=== PATIENT | male | born 1950 | race Caucasian/White ===

== ENCOUNTER 2018-04-22 18:29 | Inpatient (IN) | payer MEDICARE ==
[~2018-04-22] VITALS: Ht 170.2 cm; Wt 102.2 kg
[~2018-04-22 18:29] MED LIST: AUGMENTIN 875-1 EACH PO; K-TAB ER20 MEQ PO; LASIX20 MG PO; NORCO 5-325 TA1 EACH PO
--- NOTE | 2018-04-22 22:05 | NUR ---
PATIENT ARRIVED TO THE UNIT VIA STRETCHER. WAS ABLE TO MOVE HIMSELF OVER TO THE BED. VS DONE, WNL. IV FLUIDS STARTED PER ORDER, IV SITE IN LEFT ARE IS PAINFUL BUT FLUSHES EASILY AND RETURNS BLOOD. PATIENT REQUESTING NEW IV SITE. PAIN IN RIGHT LEG IS 4/10, PRN NORCO PROVIDED.
--- NOTE | 2018-04-22 23:00 | NUR ---
PATIENT ASSESSMENT COMPLETE. PATIENT IS AAOX4. PAIN CONSTANT IN RIGHT LOWER LEG, COMES AND GOES WITH INTENSITY THOGUH. 2-5/10 OF BURNING, THIGHT, THROBBING PAIN. PATIENT APPEARS SOB AND REPORTS FEELING SO WHILE SITTING UP TRYING TO EAT A SNACK. REPORTS CARBONMONOXIDE POISONING TWO MONTHS AGO WITH REGULAR EPISODES OF SOB SINCE. RT CONTACTED. LUNGS ARE CLEAR IN UPPER LOBES WITH FINE CRACKLES IN THE BASES, MORE DEFINED IN THE RLL. ABD IS FIRM, NONTENDER, BOWEL SOUNDS ACTIVE. NO NAUSEA. ABCESS WAS DRAINED ON R LOWER EXTREMITIY IN ED AND ENTIRE AREA WAS WRAPPED WITH GAUZE. CMS INTACT, WITH SOME NUMBNESS IN THE RIGHT FOOT. NEW IV SITE PLACED IN LEFT FOREARM, IV FLUIDS INFUSING. RIGHT AC SITE REMOVED PER PATIENT REQUEST DUE TO PAIN. PATIENT HAD SOME VALUBLES FOR THE SAFE WHICH WERE WITNESSED BY THIS RN AND THE EXECUTIVE CONSULTANT ZORA SINGH. PATIENT RESTING COMFORTABLY IN BED. URNAL PROVIDED PER REQUEST. PATIENT AGREEABLE TO NOT GETTING OUT OF BED WITHOUT CALLING FOR ASSIST. CALL LIGHT IN REACH.
--- NOTE | 2018-04-23 01:23 | NUR ---
VITALS AND I&OS DONE AND CHARTED. LET HIS RN NOELLE KNOW OF LOW B\P, AND NO OUTPUT AT THIS TIME. WHEN ASKED IF HE NEEDED TO URINATE? HE SAYS NO NOT NOW. FRESH ICE WATER GIVEN. BEDSIDE TABLE AND CALL LIGHT WITHIN REACH. PT NEEDS NOTHING AT THIS TIME.
--- NOTE | 2018-04-23 02:30 | NUR ---
PATIENT RESTING IN BED. IV FLUIDS INFUSING PER ORDER. IV FLUIDS INFUSING PER ORDER, SITE WNL. VS WNL PER CAN. PATIENT REPORTS TOLERABLE PAIN LEVEL WHILE SLEEPING. DENIES ANY NEEDS. WOUND DRESSING IS CDI. CALL LIGHT IN REACH.
--- NOTE | 2018-04-23 04:45 | NUR ---
PATIENT APPEARS TO BE SLEEPING. RR 18. CALL LIGHT IN REACH.
--- NOTE | 2018-04-23 06:07 | NUR ---
PATIENT SLEPT ON AND OFF THROUGHOUT THE NIGHT. WOUND ON RIGHT LOWER EXTREMITIEY IS COVERED, MODERATE AMOUNT OF YELLOW DRAINAGE. PAINFUL CONSTANTLY, MORE WITH MOVEMENT OR PRESSURE. REQUIRES FWW TO REDUCE WEIGHT TO RIGHT FOOT WITH AMBULATING. PATIENT IS UPPER BODY STRONG. PRN NORCO X2. NO NAUSEA. VS WNL. IV FLUIDS & IV VANCO PER ORDER.
--- NOTE | 2018-04-23 06:25 | NUR ---
PATIENT UP TO THE BATHROOM. DIFFICULTY PUTTING WEIGHT ON RIGHT FOOT. WALKER PROVIDED STABILITY TO REDUCE WEIGHT AND ALLOW PATIENT TO WALK WITH SBA. PATIENT WAS UNABLE TO VOID WHILE STANDING AND DID NOT AGREE TO SIT DOWN ON THE TOILET. PATIENT MOVED TO THE RECLINER. RIGHT LEG ELEVATED. PRN NORCO PROVIDED. IV VANCO ADMINISTERED PER ORDERS. PATIENT EDUCATION PROVIDED. CALL LIGHT IN REACH. NO OTHER NEEDS AT THIS TIME.
--- NOTE | 2018-04-23 06:40 | NUR ---
VITALS DONE AND CHARTED. GARBAGES EMPTIED, ROOM CLEANED UP. FRESH ICE WATER GIVEN. BEDSIDE TABLE AND CALL LIGHT WITHIN REACH. PT IN CHAIR WHEN I LEFT.
--- NOTE | 2018-04-23 07:30 | NUR ---
REPORT RECIEVED FROM SAMANTHA DRAKE. PT SITTING UP IN CHAIR WITH LEG PROPPED ON PILLOWS. DRAINAGE NOTED ON DRESSING.
--- NOTE | 2018-04-23 08:27 | NUR ---
PT RETURNED FROM XRAY AND IS NOW SITTING UP IN CHAIR EATING BREAKFAST.
--- NOTE | 2018-04-23 10:17 | NUR ---
BLADDER SCANNED PT DUE TO LOW URINE OUTPUT. 459 NOTED IN BLADDER. ASKED IF PT WOULD BE OPPOSED TO CATHETER AND HE STATED NO HE DOES NOT FEEL HE CAN STAND TO URINATE RIGHT NOW. INFORMED DR MAYORGA.
--- NOTE | 2018-04-23 14:10 | NUR ---
PT SITTING UP IN BED-ALERT AND ORIENTED. HE DMADE A STATEMENT WHEN I INTRO. MY SELF THAT HE FELT "GOD HAS ABANDON ME". WE DEBRIEFED REGARDING THIS, AND ALSO DISCUSSED HIS MED. CONDITION AND HIS UNDERSTANDING. PT REQUESTED PRAYER, WILL CONTINUE TO FOLLOW
--- NOTE | 2018-04-23 14:26 | NUR ---
ASKED A NURSE TO GET HIM A ICE WATER.
--- NOTE | 2018-04-23 14:36 | NUR ---
ALSO THE NURSE BROUGHT ME A POP SICLE FOR THE PATIENT.
--- NOTE | 2018-04-23 15:30 | NUR ---
RECEIVED REPORT AT 1530 FROM RUTH ANN Goddard FOUND PT IN BED WATCHING TV. DRESSING ON RIGHT LOWER LEG WAS RE-INFORCED WITH AN ABD PAD DUE TO DRAINAGE. RIGHT PEDIS PULSE WAS +2, EDMEA IS ABOUT +3 NON PITTING. LEG IS HOT TO TOUCH. CAP-REFILL IS <3 SEC. WILL CONTINUE TO MONITOR.
--- NOTE | 2018-04-23 17:25 | NUR ---
I HAVE TAKEN CARE OF THIS PT SINCE ABOUT 1529. SINCE THAT TIME HIS RIGHT LEG EDEMA WAS OF CONCERN. SO FAR RIGHT PEDIS PULSE IS +2, EDEMA IS +3 NON-PITTING, LEG IS HOT TO TOUCH. THERE ARE NO NEW CONCERNS AT THIS TIME. WILL CONTINUE TO MONITOR.
--- NOTE | 2018-04-23 17:27 | NUR ---
TOOK OVER CARE FOR THIS PT AT ABOUT 1530. SINCE THEN PT HAD NO NEW CONCERNS. ORTHO V/S TO BE DONE. ALL LOBES ARE CLEAR, PT IS FORGETFUL AT TIMES. PT IS OVERALL WEAK AND BOWEL TONES ARE HYPERACTIVE. WILL CONTINUE TO MONITOR.
--- NOTE | 2018-04-23 20:00 | NUR ---
PATIENT RESTING IN BED WATCHING TV AND IN NO DISTRESS. CALL LIGHT IS IN REACH.
--- NOTE | 2018-04-23 21:30 | NUR ---
VITAL SIGNS DONE, WNL. KINGSTON EMPTIED. IV PUMP TOTALS CLEARED. PATIENT WAS SLEEPING WHEN RN ENTERED THE ROOM. WAS SLIGHTLY CONFUSED ON THE TIME BUT BECAME ORIENTED AFTER A COUPLE MINS. HE DENIES PAIN AT THIS TIME. CALL LIGHT IN REACH.
--- NOTE | 2018-04-24 02:04 | NUR ---
PATIENT RESTING QUIETLY. CALL LIGHT IS IN REACH. PATIENT'S RESPIRATIONS EVEN AND REGULAR EYES CLOSED. RT LEG ELEVATED ON A PILLOW AND DRESSING IS CDI.
--- NOTE | 2018-04-24 04:20 | NUR ---
PATIENT GIVEN 1 NORCO FOR 6/10 LEG PAIN. PATIENT HAS BEEN SLEEPING WELL UNTIL THIS TIME. WILL RETURN TO REASSESS PAIN. CALL LIGHT IN REACH.
--- NOTE | 2018-04-24 07:52 | NUR ---
PATIENT SLEPT MOST OF THE SHIFT WITH JUST NEURONTIN AND TORADOL FOR PAIN BEFORE BEDTIME. AFTER 0 PATIENT WAS HAVING 6/10 RT LEG PAIN. I PO NORCO GIVEN AND PAIN DOWN TO 4/10 NOW. LUNGS ARE CLEAR AND BOWEL TONES ACTIVE. RIGHT LEG REMAINS ELEVAATED ON PILLOWS AND HAS SOME YELLOWISH DRAINAGE ON THE GAUZE AROUND THE KNEE WHICH DAY SHIFT WILL DISCUSS CHANGING WITH THE MD TODAY. PATIENT'S CALL LIGHT IS IN REACH.
--- NOTE | 2018-04-24 08:00 | NUR ---
RECEIVED REPORT AT 0700, FOUND PT IN BED SLEEPING. WILL TALK TO MD MAYORGA ABOUT A DRESSING CHANGE TODAY.
--- NOTE | 2018-04-24 10:15 | NUR ---
SBP WAS 100. PT IS ASYMPTOMATIC. WILL CONTINUE TO MONITOR. ALL LOBES ARE CLEAR. ABD SOUNDS ARE PRESENT. RIGHT LEG PEDIS PULSE IS +2, EJ IS +2. A DRESSING CHANGE WAS DONE AND MUCH SEROUS FLUID WITH MUCH PUSS WAS MILKED OUT OF THIS WOUND. MD MAYORGA CAME AND EVALUATED. AT THIS TIME A Q SHIFT OR PRN DRESSING CHANGE NEEDS TO BE DONE PER ORDER. WILL CONTINUE TO MONITOR FOR INCREASED EDEMA AND PEDIS PULSE. NO NEW CONCERNS AT THIS TIME.
--- NOTE | 2018-04-24 12:00 | NUR ---
PT IS EATING LUNCH AT THIS TIME. NO NEW CONCERNS AT THIS TIME.
--- NOTE | 2018-04-24 12:51 | NUR ---
I HELPED PATIENT WITH HIS BED BATH THIS MORING. HE IS SITTING UP IN HIS CHAIR WITH HIS LEGS UP.
--- NOTE | 2018-04-24 13:40 | NUR ---
PT WAS RESTING IN CHAIR, MENTIONED THAT HE HAD BEEN GIVEN SOMETHNG FOR PAIN AND WAS DROWSY. I TOLD HIM TO GO AHEAD AND REST, EXTENDED A BLESSING, HE THANKED ME FOR CHECKING. WILL FOLLOW NEEDED
--- NOTE | 2018-04-24 14:04 | NUR ---
PT IS SITTING IN CHAIR. PT NEEDED SOME IV DILAUDED 1MG FOR PAIN 5/10. PT WANTS TO TAKE A NAP. NO NEW CONCERNS AT THIS TIME.
--- NOTE | 2018-04-24 14:24 | NUR ---
SPOKE WITH PATIENT IN ROOM. PATIENT UNDERSTANDS WHY HE IS IN ISOLATION. STATES HE WANTS A NEW PCP IN [facility], [place]. STATES HE HAS BEEN SEEING A PCP IN [place] BUT HAS LOST CONFIDENCE IN THEM. DISCUSSED THAT IT TAKES A FEW MONTHS TO BE ESTABLISHED WITH NEW PCP, HE MAY NEED TO CONTINUE WITH ONE HE HAS FOR NOW. HE STATES HE WILL THINK ABOUT IT. 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 STATES HE HAS MEDICAL RIDES IF NEEDS TO GET TO APPOINTMENTS, AND DRIVES TOO. HAS NO FAMILY IN AREA. PATIENTS PREFERENCE IS TO RETURN HOME AT DISCHARGE. HAS A FRIEND WHO CAN TAKE HIM HOME. DISCUSSED HE MAY NEED ASSISTED ABX THERAPY, THAT CULTURES ARE STILL PENDING AND WE WILL CONTINUE TO FOLLOW HIM. DISCUSSED DX AND QUESTIONS ANSWERED. HE IS WONDERING ABOUT SOME HELP AT HOME IF HE IS "LAYED UP LONG". DISCUSSED WE CAN LOOK AT OPTIONS BY DISCHARGE, CHW PROGRAM, SWG PROGRAM AND OUTPATIENT TREATMENTS. NO FURTHER QUESTIONS AT THIS TIME.
--- NOTE | 2018-04-24 16:00 | NUR ---
PT IS SITTING UP IN CHAIR WATCHING TV.
--- NOTE | 2018-04-24 18:11 | NUR ---
DRESSING CHANGE WAS DONE AT ABOUT 1000. NEW ORDER FOR DRESSING CHANGE DONE. PAIN CONTROL SINCE DRESSING CHANGE HAS BEEN AN ISSUE THAT IS STILL ONGOING. EJ I RIGHT LOWER LEG AND KNEE IS +3 SINCE DRESSING CHANGE, PEDIS PULSE IS +2. RIGHT LEG IS ELEVATED. NO NEW CONCERNS AT THIS TIME. VANC TROUGH 04/24/18 WAS 10.6.
--- NOTE | 2018-04-24 18:30 | NUR ---
HELPED HIM BACK TO BED GOT HIM A NEW GLASS OF ICE WATER THAN PUT LOTION ON HIS BACK.
--- NOTE | 2018-04-24 19:30 | NUR ---
RECEIVED RERPORT FROM DAYSHIFT RN AND PATIENT'S PAIN IS CURRENTLY 4/10 IN THE RIGHT LEG WHICH IS COMFORTABLE FOR HIM AT THIS TIME. RT LEG ELEVATED ON 2 PILLOWS AND PATIENT'S CALL LIGHT IN REACH.
--- NOTE | 2018-04-24 21:10 | NUR ---
PATIENT IS SITTING IN BED WATCHING TV. RT LEG IS ELEVATED ON 2 PILLOWS. PATIENT'S PAIN 5/10 AT THIS TIME. PATIENT'S WATER GLASS IS FULL AND PATIENT NOT IN NEED OF ANYTHING AT THIS TIME. CALL LIGHT IS IN REACH.
--- NOTE | 2018-04-24 23:25 | NUR ---
VITALS AND I&OS DONE AND CHARTED. BEDSIDE TABLE AND CALL LIGHT IN REACH. NOTIFIED RN OF HIGH TEMP. 100.5
--- NOTE | 2018-04-25 02:00 | NUR ---
PATIENT RESTING QUIETLY, EYES CLOSED, RESPIRATIONS EVEN AND REGULAR. CALL LIGHT IN REACH.
--- NOTE | 2018-04-25 03:15 | NUR ---
PATIENT'S LUNGS REMAIN CLEAR AND BOWEL TONES ACTIVE. IV INFUSING AND WNL. RT LEG WOUND HAS BEEN REPACKED AND REDRESSED. 1/4INCH PACKING USED TO PACK THE WOUND AFTER IRRIGATED WITH 50MLS SALINE. THEN COVERED WITH 4X4'S,ABD,KERLIX AND KUSHAL WRAP. PATIENT WAS PREMEDICATED WITH 4MG ZOFRAN, 1 PO NORCO, AND 1MG DILAUDID. PAIN GOT UP TO 8/10 WHEN PACKING WOUND, BUT BACK TO 4/10 AT THIS TIME AND PATIENT IS COMFORTABLE WITH THAT. GOWN CHANGED FROM PATIENT SWEATING, ALONG WITH SOME LINENS. RT LEG ELEVATED ON 2 PILLOWS. CALL LIGHT IN REACH.
--- NOTE | 2018-04-25 07:30 | NUR ---
HANDOFF REPORT RECEIVED FROM QUALITY OFFICER RN.
--- NOTE | 2018-04-25 08:35 | NUR ---
PT RESTINING IN BED, MD AT BEDSIDE. PT ON ROOMA IR, LUNG SOUNDS CLEAR, DENIES SOB. PT TOLERATING REGULAR DIET, DENIES NAUSEA, BOWEL TONES ACTIVE. IV FLUIDS INFUSING NS AT 75 ML/HR, IV VANCO INFUSING. PT WIHT KING[place] CTAH IN PLACE, DRAINING YELLOW URINE FREELY. PT WITH DRESSING TO RLE, CDI, DISCUSSED DRESSING CHANGE AFTER SHOWER. CM SINTACT, EDEMA TO RLE 2-3+, LEG ELEVATED. PT DENIES OTHER NEEDS AT THIS TIME.
--- NOTE | 2018-04-25 10:23 | NUR ---
PATIENT WANTED TO TAKE A SHOWER LATER. ALSO CHANGED HIS BED LINENS.
--- NOTE | 2018-04-25 11:00 | NUR ---
PT RESTING IN CHAIR,PT COMPLAINT OF PAIN TO RIGHT LEG, ELEVATED WITH ADDITIONAL PILLOW. PT DENIES OTHER NEEDS AT THIS TIME.
--- NOTE | 2018-04-25 11:45 | NUR ---
NURSE AIDE AT BEDSIDE TO ASSIST WITH SHOWER.
--- NOTE | 2018-04-25 12:00 | NUR ---
WRAPPED PATIENT'S LEG BEFORE GETTING IN THE SHOWER. ALSO HELPED HIM WITH HIS SHOWER. WASHED HIS HAIR. NOW IS LAYING IN BED VISITING WITH HIS COMPANY.
--- NOTE | 2018-04-25 12:00 | NUR ---
DRESSING CHANGE COMPLETED. WOUND WASHED WITH WOUND CLEANSER, RINSED WITH SALINE, PACKED WITH 1/4 INCH PACKING STRICK, COVERED WITH GAUZE, ABD, SECURED WITH KERLEX AND KUSHAL. PT PREMEDICATED WITH 1 MG IV DILAUDID AND 4MG ZOFRAN. PT TOLERATED PROCEDURE WITH MODERATE PAIN. MD TO BEDSIDE TO ASSESS WOUND BEFORE APPLICATION OF NEW DRESSING.
--- NOTE | 2018-04-25 14:30 | NUR ---
PT RESTING IN BED. PT REQUESTING PAIN MEDICATION FOR PAIN / TO RIGHT LEG, GIVEN 1 TAB NORCO. CMS INTACT, CONTINUES TO HAVE RLE EDEMA 2-3+. IV CLINDAMYCIN INFUSING. NO ACUTE CHANGES. PT DENIES OTHER NEEDS AT THIS TIME.
--- NOTE | 2018-04-25 15:36 | NUR ---
PATIENT HAS VISITORS IN HIS ROOM.
--- NOTE | 2018-04-25 18:37 | NUR ---
PT GIVEN 1 TAB NORCO FOR PAIN 6/ TO RIGHT LEG. PT ASSISTED TO BED. LEG ELEVATED. PT DENIES OTHER NEEDS AT THIS TIME.
--- NOTE | 2018-04-25 18:38 | NUR ---
PT ON ROOM AIR, LUNG SOUNDS CLEAR. DRESSING CHANGE COMPLETED TO RIGHT LEG WOUND. PAIN CONTROLLED WITH NORCO, PRN DILAUDID GIVEN BEFORE DRESSING CHANGE. PT TOLERATING REGULAR DIET, BOWEL TONES ACTIVE, BM TODAY, MIRALAX AND SENNA STARTED FOR CONSTIPATION. PT UP WITH 1PA WITH FWW, CONTINUES TO BE UNABLE TO BEAR WEIGHT TO RIGHT LEG. PT WITH THEE, QS. SALINE LOCKED, IV CLINDAMYCIN.
--- NOTE | 2018-04-25 18:51 | NUR ---
PT WITH COMPLAINT OF RIGHT KNEE PAIN BEHIND KNEE. DISCUSSED WITH MD SUJATA TO ORDER, DVT RO U/S. U/S TECH NOTIFIED.
--- NOTE | 2018-04-25 20:00 | NUR ---
PATIENT LAYING IN BED WITH RT LEG ELEVATED UP ON TWO PILLOWS. PATIENT WOUND IS UNDRESSED. PATIENT WATCHING TV AT THIS POINT AND PAIN UNDERCONTROL AT THIS TIME. WILL BE BACK TO REDRESS WOUNDS. CALL LIGHT IN REACH.
--- NOTE | 2018-04-25 22:09 | NUR ---
PATIENT GIVEN ALL PM MEDS AND PREMEDICATED WITH 1MG DILAUDID AND 1 NORCO WITH 4MG ZOFRAN BEFORE DRESSING CHANGE AND PAIN WAS 2/10. OLD PURULANT 1/4 INCH PACKING REMOVED . WOUND IRIGATED WITH 100MLS NS WITH VERY LITTLE DISCHARGE. WOUND REPACKED WITH 1/4INCH PACKING AND COVERED WITH 4X4'S, ABD, KERLIX, AND AN KUSHAL WRAP. PATIENT 'S PAIN RETURNED TO 8/10 AND REDOSED WITH ANOTHER 1MG DILAUDID AND PAIN BACK TO 2/10. PATIENT GOING TO TRY AND GO TO SLEEP AND CALL LIGHT IN REACH, WARM BLANKET GIVEN, AND LIGHT TURNED DOWN.
--- NOTE | 2018-04-26 00:50 | NUR ---
SAMANTHA VERMA DID THE V/S AND I&O.
--- NOTE | 2018-04-26 01:01 | NUR ---
PATIENT RESTING QUIETLY SNORING WITH A RESPIRATORY RATE OF 16BPM. EYES CLOSED, RESPIRATORY RATE REGULAR AND EVEN. CALL LIGHT IN REACH.
--- NOTE | 2018-04-26 03:00 | NUR ---
PATIENT RESTING QUIETLY SUPINE, SNORING SLIGHTLY, RESPIRATIONS EVEN AND REGULAR AT 16BPM. EYES CLOSED, NO S/S OF DISTRESS, AND CALL LIGHT IS IN REACH.
--- NOTE | 2018-04-26 04:43 | NUR ---
PATIENT'S PAIN REMAINS UNDER CONTROL AT THIS TIME AND HE STILL HAS HIS RT LEG PROPPED UP ON 2 PILLOWS. ASSESSMENT REMAINS UNCHANGED. PATIENT IS STILL SLEEPY AND IS GOING BACK TO SLEEP. CALL LIGHT IN REACH.
--- NOTE | 2018-04-26 05:46 | NUR ---
PATIENT CURRENTLY AWAKE, BUT DROWSY. PATIENT SAYS HE HAS SLEPT PRETTY WELL SINCE THE DRESSING CHANGE. RT LEG REMAINS ELEVATED ON 2 PILLOWS AND SWELLING LOOKS SOMEWHAT BETTER AND NO QUITE RED. THE COMBINATION OF PREMEDICATING WITH 1MG DILAUDID, 1 NORCO, AND 4MG IV ZOFRAN PRIOR TO DRESSING CHANGE AND THEN 1MG IV DILAUDID AFTER DRESSING CHANGE SEEMS TO WORK VERY WELL FOR PATIENT'S PAIN CONTROL. PATIENT GOING TO TRY AND GET SOME MORE REST AT THIS TIME AND CALL LIGHT IS IN REACH.
--- NOTE | 2018-04-26 08:00 | NUR ---
PT AWAKE IN BED, ALERT AND ORIENTED. ASSISTED TO EDGE OF BED TO EAT BREAKFAST. PT MEDICATED WITH NORCO FOR 5/10 RIGHT LEG PAIN. DENIES NAUSEA OR OTHER CONCERNS. RIGHT LEG DRESSING CDI. BLINDS OPENED. IV FLUSHED AND ABX INFUSED. CALL LIGHT WITHIN REACH.
--- NOTE | 2018-04-26 09:15 | NUR ---
PT 1PA WITH WALKER TO TRANSFER TO RECLINER. PT DID NOT BARE WEIGHT ON RIGHT LEG BUT WAS ABLE TO "HOP" WITH LEFT USING WALKER. RIGHT LEG ELEVATED ON 2 PILLOWS, PT REPORTS DECREASE IN PAIN AT REST. CALL LIGHT WITHIN REACH.
--- NOTE | 2018-04-26 10:12 | NUR ---
WHEN I CAME IN PATIENT WAS UP IN HIS CHAIR WORKING WITH PHYSICAL THERAPY. CHANGED BED LINENS.
--- NOTE | 2018-04-26 12:15 | NUR ---
PT SLEEPING IN RECLINER, EYES CLOSED, RESP EVEN AND UNLABORED.
--- NOTE | 2018-04-26 12:44 | NUR ---
PATIENT IS SLEEPING.
--- NOTE | 2018-04-26 13:17 | NUR ---
PT REPORTING RIGHT LEG PAIN 03/01, MEDICATED WITH PRN NORCO. IV ABX STARTED. PT SITTING UP IN RECLINER RESTING, WARM BLANKETS GIVEN. PT STATES HE IS NOT HUNGRY AT THIS TIME AND WILL EAT LATER. CALL LIGHT WITHIN REACH.
--- NOTE | 2018-04-26 15:00 | NUR ---
RIGHT LEG DRESSING. NO PUSS EXTRACTED, ONLY SEROSANGUINOUS FLUID. IRRIGATED WITH STERILE SALINE, PACKED AND REDRESSED WITH GAUZE, ABD, KERLEX, AND KUSHAL WRAP. PT HAD MODERATE PAIN BUT TOLERATED WELL. MEDICATED AFTERWARDS WITH 1MG IV DILAUDID. PT NOW EATING LUNCH. CALL LIGHT WITHIN REACH.
--- NOTE | 2018-04-26 16:50 | NUR ---
PT RESTING IN RECLINER, EYES CLOSED, RESP EVEN AND UNLABORED.
--- NOTE | 2018-04-26 17:56 | NUR ---
PT RATING RIGHT LEG PAIN 7/10. MEDICATED WITH SCHEDULED NAPROXEN. REDRESSED GAUZE, ABD, KERLEX, AND GAUZE DRLashaun REMOVED OUTER DRESSING TO OBSERVE WOUND. CALL LIGHT WITHIN REACH.
--- NOTE | 2018-04-26 20:00 | NUR ---
ROUNDED CHARGE. PATIENT IS RESTING IN BED. PATIENT DENIES ANY COMMENTS, QUESTIONS, OR CONCERNS. NO NEEDS NEEDED. CALL LIGHT IN REACH.
--- NOTE | 2018-04-26 23:15 | NUR ---
ASSISTED SAMANTHA VERMA GETTING READY/ SET UP PATIENT FOR SHOWER.
--- NOTE | 2018-04-26 23:16 | NUR ---
CLEANED UP BATHROOM AFTER PATIENT'S SHOWER.
--- NOTE | 2018-04-27 00:31 | NUR ---
Resting, legs elevated, r leg dressing intact, showered earlier. no resp distress at this scotty. no s/sx pain. NWB r leg. f/c patent. fludis and all light at hands reach
--- NOTE | 2018-04-27 03:36 | NUR ---
MEDICATED WITH ONE NORCO AND ONE TYLENOL 325MG PO PRIOR TO LEG DRESSING CHANGES. R LEG DRESSING CHANGED, NO DRAINAGE NOTED WHEN LEG SQUEEZED. TUNNELING OF WOUND ABOUT 1 1/2 INCH. PACKED WITH 1/2CM PACKING TAPE. WOUND ENTRANCE COVERED WITH GAUZE AND REWRAPPED WITH GAUZE AND KUSHAL WRAP. SKIN BEHIND KNEE AND AROUND UPPER CALF RED, TENDER, WARM AND FIRM TO TOUCH. DRY SKIN BELOW. LEG ELEVATED WITH 2 PILLOW. COOPERATIVE WITH PROCEDURE
--- NOTE | 2018-04-27 05:07 | NUR ---
PT R LEG ELEVATED WITH PILLOWS CLEAN DRESSING R MID LOWER LEG. SKIN RED, EDEMATOUS AND VERY LITTLE SS DISCHARGE. DRESSING CHANGES SCHEDULE BID. WAS MEDICATED WITH NORCO AND 1 TYLENOL 325MG PO PRIOR TO DRESSING CHANGE WITH GOOD PAIN RELIEF. C/O L KNEE PAIN TOO. SL INTACT, F/C PATENT, DRAINING CLEAR YELLOW URINE. PT IS NWB R LEG, USES 1PA AND FWW TO TRANSFER, FLUIDS AND CALL LIGHT WITHIN HANDS REACH
--- NOTE | 2018-04-27 06:02 | NUR ---
AWAKE, WATCHING TV, NO C/O APIN, NO REQUESTS, ON ROOM AIR, R LEG DRESSING CDI, ELEVATED WITH PILLOWS, HIGINIO COLORED SKIN. EDEMATOUS, GOOD CMS.
--- NOTE | 2018-04-27 08:11 | NUR ---
PT SITTING UP AT EDGE OF BED EATING BREAKFAST. REPORTS THIS AM THAT HIS RIGHT LEG WHERE WOUND IS "HAS ALMOST NO PAIN THIS MORNING." HIS COMPLAINTS TODAY ARE OF PAIN AND SWELLING OF HIS LEFT KNEE, 5/10. PT MEDICATED WITH SCHEDULED NAPROXEN. RIGHT LEG DRESSING CDI, 3+ PITTING EDEMA, LEG APPEARS SLIGHTLY LESS REDDENED TODAY. IV FLUSHED AND ABX STARTED. CALL LIGHT WITHIN REACH.
--- NOTE | 2018-04-27 08:47 | NUR ---
pateint is using restroom, awaiting guests, he needed no other assistance at this time.
--- NOTE | 2018-04-27 10:40 | NUR ---
PT SITTING UP IN RECLINER WATCHING TV. DENIES NEEDS OR CONCERNS AT THIS TIME. CALL LIGHT WITHIN REACH.
--- NOTE | 2018-04-27 12:01 | NUR ---
PT MEDICATED WITH PRN NORCO FOR C/O LEFT KNEE PAIN 05/01. SITTING UP IN RECLINER EATING LUNCH, TALKING ON HIS CELLPHONE.
--- NOTE | 2018-04-27 13:40 | NUR ---
PT MEDICATED WITH TYLENOL FOR C/O LEFT KNEE PAIN 05/01. PLACED ICE PACK TO LEFT KNEE. NOTIFIED DR. LOPEZ OF PAIN.
--- NOTE | 2018-04-27 15:26 | NUR ---
CARE CONFERENCE PATIENT, MYSELF, DR LOPEZ DISCUSSED PATIENTS DIAGNOSIS, TESTS, DISCHARGE PLAN PATIENT STATES HE IS HAVING PAIN IN LEFT KNEE TODAY. DR LOPEZ DID AN ASSESSMENT. PATIENT STATED HE DID GET UP THIS MORNING EASILY. HE STATES HE HAS A GIRLFRIEND FROM [facility] WHO IS PLANNING ON COMING AND STAYING WITH HIM WHEN HE GETS HOME. DISCUSSED THAT PHYSICAL THERAPY STATES HE NEEDS REHAB STAY. HE STATES HE IS FINE WITH THIS BUT WANTS TO SEE IF HE CAN DO IT AT [facility]. AGREED THAT I WILL CALL AND CHECK ON AVAILABILITY. QUESTIONS ANSWERED BY DR LOPEZ. XRAY BEING ORDERED FOR L KNEE.
--- NOTE | 2018-04-27 15:37 | NUR ---
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
--- NOTE | 2018-04-27 17:01 | NUR ---
PREMEDICATED WITH NORCO FOR DRESSING CHANGE. PT REPORTS THAT OVERALL PAIN IS DOWN TO 3/10, STATES THAT ICE TO LEFT KNEE HELPED A LOT WITH PAIN.
--- NOTE | 2018-04-27 17:48 | NUR ---
DRESSING CHANGE COMPLETED. NO EXUDATE EXPRESSED. IRRIGATED WITH STERILE SALINE. PACKED WITH 1/2 PACKING. REDNESS AND INLFAMMATION HAVE DRASTICALLY DECREASED SINCE YESTERDAY. DRESSED WITH 4X4 GAUZE, ABD, KERLEX, AND KUSHAL WRAP. PT MEDICATED WITH SCHEDULED NAPROXEN. SITTING UP IN BED EATING DINNER AFTER DRESSING CHANGE. CALL LIGHT WITHIN REACH.
--- NOTE | 2018-04-27 19:15 | NUR ---
RECEIVED REPORT FROM DAY SHIFT RN. PATIENT IS RESTING IN BED WATCHING TV. PATIENT DENIES ANY NEEDS AT THIS TIME. CALL LIGHT IN REACH. NO NEEDS NOTED.
--- NOTE | 2018-04-27 21:50 | NUR ---
PATIENT ASSESMENT COMPLETED. PATIENT RATES PAIN IN HIS LEFT KNEE AT A 5/10. PRN PAIN MEDICATION GIVEN PER ORDER. PATIENTS EVENING MEDICATIONS GIVNE PER ORDER. NEW IV STARTED AND OLD ONE REMOVED THE OLD ONE WAS LEKAING. PATIENT TOLERATED ACTIVITY WELL. PATIENTS K[place]ST[place] EMPTIED. K[place]STON CARE COMPLETED. PATIENT DENIES ANY FURTHER NEEDS. TEETH BRUSHED. CALL LIGHT IN REACH. DRESSING ON RIGHT LEG IS C/D/I, NO DRAINAGE NOTED.
--- NOTE | 2018-04-27 23:58 | NUR ---
PATIENT IS RESTING IN BED WITH EYES CLOSED, RR 17. CALL LIGHT WITHIN REACH.
--- NOTE | 2018-04-28 02:40 | NUR ---
PATIENT ASSESMENT COMPLETED. PATIENTS 0200 ABX GIVEN PER ORDER. PATIENT RATES PAIN AT A 4/10. PATIENT DENIES THE NEED FOR PAIN MEDICATION. PATIENT DENIES ANY FURTHER NEEDS CALL LIGHT IN REACH.
--- NOTE | 2018-04-28 04:23 | NUR ---
PATIENT IS RESTING IN BED WITH HIS EYES CLOSED ON HIS RIGHT SIDE. RR 17. CALL LIGHT IN REACH.
--- NOTE | 2018-04-28 05:07 | NUR ---
PATIENT RESTED WELL THROUGHOUT THE SHIFT. PATIENT IS ON A REGULAR DIET. PATIENT IS WORKING WITH PT. PATIENT HAS A KINGSTON IN PLACE AND OUPUT IS QS. PATIENT IS A 1PA W/FWW AND RIGHT LEG WEIGHT BEARING TOLERATED. ICE PACK APPLIED TO LEFT KNEE NEEDED FOR COMFORT. PATIENT HAS DRESSING CHANGES QSHIFT ON RIGHT LOWER LEG. PATIENTS BOWEL MEDICATIONS W/HELD PATIENT HAD MULTIPLE LOOSE STOOLS. PATIENT RECEIVED PRN PAIN MEDICATION X2. PATIENT IS AAOX3.
--- NOTE | 2018-04-28 07:06 | NUR ---
PATIENTS DRESSING CHANGED COMPLETED. PATIENT GIVEN PRN PAIN MEDICATION PER ORDER. PATIENT IS IN BED RESTING. PATIENT DENIES ANY FURTHER NEEDS. CALL LIGHT IN REACH.
--- NOTE | 2018-04-28 07:30 | NUR ---
BEDSIDE HANDOFF REPORT RECEIVED FROM DOUBLE END SEWER RN. PT RESTING IN BED. PT DENIES NEEDS AT THIS TIME.
--- NOTE | 2018-04-28 09:15 | NUR ---
PT RESTING IN BED. PT RATING PAIN 4/10 TO RIGHT LEG, GIVEN SCHEDULED NAPROXEN, ICE PACK TO LEFT LEG, RECENTLY RECEIVED INJECTION TO LEFT KNEE BY DR. BLAIR. PT ON ROOM AIR, LUNG SOUNDS CLEAR WITH CRACKLES TO RIGHT LOWER LOBE. PT TOLERATING REGULAR DIET, BOWEL TONES ACTIVE, MIRALAX/SENNA HELD DUE TO LOOSE STOOL. PT WITH DRESSING TO RLE, CDI, QSHIFT DRESSING CHANGE TO BE COMPLETED THIS AFTERNOON. EDEMA TO BLE, 3+ TO RIGHT LEG AND FOOT, 2+ TO LEFT LEG. CMS INTACT, PULSES PALPABLE. IV FLUSHED, PATENT, IV CLINDAMYCIN INFUSING. PT DENIES OTHER NEEDS AT THIS TIME.
--- NOTE | 2018-04-28 10:25 | NUR ---
IV CLINDAMYCIN INFUSION COMPLTED, PT SALIEN LOCKED. PT ASSISTED TO BATHROOM, SBA WITH WALKER, BEARING MORE WEIGHT TO RLE. PT ABLE TO VOID WITHOUT DIFFICULTY. PT ASSISTED TO CHAIR, LEGS ELEVATED. CALL LIGHT WITHIN REACH, PT DENIES OTHER NEEDS AT THSI TIME.
--- NOTE | 2018-04-28 12:41 | NUR ---
TALKED WITH THE PT ABOUT WHAT HE PLANS ON DOING UPON DC. HE STATES HE WOULD LIKE TO GO HOME AND HAVE HIS GIRLFRIEND FROM [place] COME UP AND STAY WITH HIM. AFTER TALKING WITH HIM ABOUT THE BENEFITS OF GOING TO A SWING BED. PT STATES HE WOULD LIKE FOR ME TO ARRANGE FOR HIM TO GO TO [facility] FOR REHAB. HE STATES AFTER THINKING ABOUT IT FOR A LITTLE BIT PT THINKS THIS WILL BE A GOOD IDEA TO BE THERE FOR 5 TO 10 DAYS. TALKED WITH LUCI FROM [facility] AND SHE STATED THEY HAVE A BED AND WOULD GLADLY LOOK AT CHART NOTES FOR THIS PT. FAXED CHART NOTES INCLUDING FACESHEET, ER NOTES, H AND P, PROG NOTES, PT EVAL AND NOTE TO [facility]. RECIEVED A FAX CONFIRMATION BACK.
--- NOTE | 2018-04-28 13:30 | NUR ---
PT RESTING IN BED. PT STATES PAIN TOLERABLE AT THIS TIME, REPORTS PAIN TO LEFT LEG IS MUCH IMPROVED AFTER KNEE INJECTION. PT CONTINUES TO BE ON ROOM AIR, RIGHT LOWER LOBE WITH CRACKLES. EDEMA TO BLE UNCHANGED, CMS INTACT. NO ACUTE CHANGES. PT DENIES OTHER NEEDS AT THIS TIME. P.T. TO ROOM TO WORK WITH PT.
--- NOTE | 2018-04-28 14:43 | NUR ---
PT HOPES TO BE DC'D TOMORROW TO [facility] FOR REHAB. HE SEEMS MORE ALERT AND ORIENTED TODAY AND MORE ENGAGING IN CONVERSATION-FEELING BETTER. HIS INSURANCE DEFENSE PARALEGAL HAS BEEN BY AND OTHERS FROM HIS SPIRITUAL COMMUNITY. EXTENDED A BLESSING, WILL FOLLOW NEEDED
[2018-04-28] MEDS ORDERED: CLINDAMYCIN HC300 MG PO (15:31)
[2018-04-28] MEDS ORDERED: NORCO 5-325 TA1 EACH PO (15:32)
--- NOTE | 2018-04-28 16:34 | NUR ---
PT REQUESTING PAIN MEDICATION, RATING PAIN 7/10 TO RIGHT LEG. PT GIVEN SCHEDULED NAPROXEN. PLAN FOR DRESSING CHANGE IN 1 HOUR.
--- NOTE | 2018-04-28 18:00 | NUR ---
DRESSING CHANGE COMPLETED TO RIGHT CALF WOUND. PACKING REMOVED, WOUND CLEANSED WITH WOUND CLEANSER AND SALINE. TUNNELING MEASURED TO 5 CM AT 8 O'CLOCK. DRESSED WITH GAUZE, ABD, KERLEX, AND KUSHAL. PT TOELRATED WELL. PT DENIES OTHER NEEDS AT THIS TIME.
--- NOTE | 2018-04-28 18:34 | NUR ---
PT HAD UNEVENTFUL DAY. PT ON ROOM AIR, CRACKLES TO RLL. PAIN WELL CONTROLLED WITH NAPROXEN, RECIVED LEFT KNEE INJECTION BY DR. BLAIR. PT UP WITH SBA WITH WALKER. IV CLINDAMYCIN, SALINE LOCKED. TOELRATING REGULAR DIET. DRESSING CHANGE COMPLETED, NO LONGER PACKING WOUND. PT SHOULD DISCHARGE TOMORROW.
--- NOTE | 2018-04-28 19:55 | NUR ---
RECEIVED REPORT FROM GUSTAVO BARAHONA RN. PATIENT IS RESTING IN BED WITH EYES CLOSED, RR 17. CALL LIGHT IN REACH.
--- NOTE | 2018-04-28 20:05 | NUR ---
PATIENT ASSESMENT COMPLETED. PATIENT GIVEN EVENING MEDICATIONS GIVEN PER ORDER. PATIENTS DRESSING ON RIG TLEG IS C/D/I, NO DRAINGE NOTED. IV ABX INFUSING. PATIENT RATES PAIN AT A 6/10. PRN PAIN MEDICATION PER ORDER. PATIENT DENIES ANY FURTHER NEEDS AT THIS TIME. URINAL EMPTIED, OUPUT QS. PATIENTS VITALS TAKEN AND RECORDED BY PHYSICIAN CHIEF OF PATHOLOGY.
--- NOTE | 2018-04-28 21:05 | NUR ---
IV ABX COMPLETED. PATIENT IS NOW SL. NO NEEDS NOTED. CALL LIGHT IN REACH.
--- NOTE | 2018-04-28 23:10 | NUR ---
PATIENT IS RESTING IN BED ON HIS RIGHT SIDE WITH EYES CLOSED. RR 17. CALL LIGHT IN REACH.
--- NOTE | 2018-04-29 02:17 | NUR ---
PATIENTS 0200 MEDICATIONS GIVEN PER ORDER. PATIENT DENIES ANY NEEDS AT THIST TIME. CALL LIGHT IN REACH.
--- NOTE | 2018-04-29 04:23 | NUR ---
PATIENT IS RESTING IN BED WITH EYES CLOSED IN HIS RIGHT SIDE. RR 16. CALL LIGHT IN REACH.
--- NOTE | 2018-04-29 04:55 | NUR ---
PATIENT RESTED WELL THROUGHOUT THE SHIFT. PATIENT IS ON A REGULAR DIET. PATIENT IS WORKING WITH PT. PATIENT IS A 1PA W/FWW. PATIENT IS SL AND IV FLUSHES WELL. PATIENTS URINE OUPUT IS QS. PATIENT HAS DRESSING CHANGES QSHIFT. PATIENT IS AAOX3.
--- NOTE | 2018-04-29 06:58 | NUR ---
PATIENTS DRESSING CHANGED COMPLETED. PATIENT RATES PAIN AT A 5/10. PRN PAIN MEDICATIONS GIVEN PER ORDER. PATIENTS VITALS TAKEN AND RECORDED BY THERMODYNAMICS TEACHER. PATIENT IS RESTING IN BED WATCHING TV. PATIENT DENIES ANY FURTHER NEEDS CALL LIGHT IN REACH.
--- NOTE | 2018-04-29 07:00 | NUR ---
BEDSIDE HANDOFF REPORT RECEIVED FROM SEPARATOR INSERTER RN. PT RESTING IN BED. PT DENIES NEEDS AT THIS TIME. PLAN FOR DISCHARGE THIS AM.
--- NOTE | 2018-04-29 08:10 | NUR ---
THIS CORE JAVA SOFTWARE ENGINEER ASSISTED PATIENT UP INTO SHOWER. PATIENT SHOWERED AND PERFORMED AM CARE AND ORAL CARE INDEPENDENTLY. LINENS CHANGED AND READJUSTED NEEDED. CORE JAVA SOFTWARE ENGINEERRashid SHARPI IN ROOM WITH PATIENT AT THIS TIME. NO OTHER NEEDS AT THIS TIME.
--- NOTE | 2018-04-29 08:30 | NUR ---
PT SITTING IN CHAIR, JUST COMPLETED SHOWER WITH NURSE AIDE. PT RATINGPAIN 4/10 AT THIS TIME, GIVEN SCHEDULED NAPROXEN. PT ON ROOM AIR, LUNG SOUNDS CLEAR. PT DENIES NAUSEA, BOWEL TONES ACTIVE, REFUSING MIRALAX AND SENNA AT THIS TIME. PT WITH EDEMA TOO BLE, RIGHT LEG IMPROVED TO 2+, LEFT LEG CONTINUES TO BE 2+. RIGHT LEG WITH DRESSING IN PLACE, CDI. PLAN TO DISCHARGE TODAY. IV CLINDAMYCIN INFUSING. PT DENIES OTHER NEEDS AT THIS TIME.
--- NOTE | 2018-04-29 09:47 | NUR ---
REPORT FROM RN THAT PT IV WAS LEAKING, FLUSHED PATENT. IV CLINDAMYCIN INFUSING. PT DENIES OTHER NEEDS AT THIS TIME.
--- NOTE | 2018-04-29 10:33 | NUR ---
ATTEMPTED TO CALL LUCI AT [facility] MESSAGES LEFT X 3. CALLED AND SPOKE WITH GRICEL (?) AND SHE STATED LUCI WAS IN A MEETING. SUGGESTED I FAX ORDERS TO LUCI'S FAX. ORDERS FAXED ALONG WITH THE [facility] TO [facility]. RECIEVED A FAX CONFIRMATION.
--- NOTE | 2018-04-29 16:19 | NUR ---
CALLED [facility] VERIFIED THAT PT ARRIVED THERE AND WAS INFORMED THAT HE HAD GOTTEN THERE.
== END 2018-04-29 11:25 | disposition home or self-care (01) | DRG 603 ==
LOC: ED 18:29 → MS 21:15
PROVIDERS: ADMIT Internal Medicine
PROC: 0H9KXZZ Drainage of Right Lower Leg Skin, External Approach (ICD-10-PCS; principal; 2018-04-22)
PROC: 3E0U33Z Introduction of Anti-inflammatory into Joints, Percutaneous Approach (ICD-10-PCS; 2018-04-22)
PROC: 3E0U3BZ Introduction of Anesthetic Agent into Joints, Percutaneous Approach (ICD-10-PCS; 2018-04-22)
DX: L03.115 Cellulitis of right lower limb (principal); B95.61 Methicillin susceptible Staphylococcus aureus infection as the cause of diseases classified elsewhere; R33.9 Retention of urine, unspecified; M17.12 Unilateral primary osteoarthritis, left knee; L02.415 Cutaneous abscess of right lower limb; M71.22 Synovial cyst of popliteal space [Baker], left knee
CPT/HCPCS: 36415; 71046; 73560; 73590; 80048; 80053; 80202; 83735; 85025; 87070; 87077; 87186; 90715; 93971; 96365; 96375; 97161; 99284; G8978; G8979; J1170; J1650; J1885; J2270; J2405; J3301; J3370; J7030; J7040; J7060

== ENCOUNTER 2020-04-25 11:39 | Emergency (ER) | payer MEDICARE ==
[~2020-04-25] VITALS: Ht 170.2 cm; Wt 99.6 kg
[~2020-04-25 11:39] MED LIST changes: +CLINDAMYCIN HC300 MG PO; +LOVENOX100 MG/1 M SUB-Q; +NORCO 7.5-3251 EACH PO
--- OUTSIDE RECORDS SUMMARY | 2020-04-25 11:42 | XMS ---
PreMana Notification: JOSE BERKOWITZ Security Search Developer Events No recent Security Events currently on file CRITERIA MET - [facility] CARE PROVIDERS ABEL LARIOS [facility] Current PHONE: [phone] Chan has no Care Guidelines for this patient. ELindy VISIT COUNT (12 MO.) 1 [facility] - [place] 1 CARIE [facility] TOTAL 2 NOTE: Visits indicate total known visits. 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
[2020-04-25] MEDS ORDERED: GABAPENTIN300 MG PO (11:49)
[2020-04-25] MEDS ORDERED: TAMSULOSIN HCL0.4 MG PO (11:50)
[2020-04-25] MEDS ORDERED: LOVENOX100 MG/1 M SUB-Q (15:29)
[2020-04-25] MEDS ORDERED: COUMADIN5 MG PO (15:29)
[2020-04-25] MEDS ORDERED: OXYCODONE HCL5 MG PO (15:33)
--- NOTE | 2020-04-26 07:33 | EKG ---
[facility] [address] [place] [address] Signed Normal sinus rhythm Left axis deviation Nonspecific ST abnormality Abnormal ECG No previous ECGs available Confirmed by DEMETRIUS MAYORGA MD ([id number]) on 04/26/2020 7:32:49 AM Electronically Signed By: DEMETRIUS MAYORGA MD 04/26/20 0733 PATIENT NAME: JOES BERKOWITZ Electrocardiogram DATE OF : 48 PHYSICIAN: DEMETRIUS MAYORGA MD REPORT #: [id number] REPORT IS CONFIDENTIAL AND NOT TO BE RELEASED WITHOUT AUTHORIZATION
== END 2020-04-25 16:06 | disposition home or self-care (01) ==
LOC: ED 11:39
DX: I82.412 Acute embolism and thrombosis of left femoral vein (principal); I82.432 Acute embolism and thrombosis of left popliteal vein; I82.452 Acute embolism and thrombosis of left peroneal vein; I82.442 Acute embolism and thrombosis of left tibial vein; I82.4Z2 Acute embolism and thrombosis of unspecified deep veins of left distal lower extremity; Z86.718 Personal history of other venous thrombosis and embolism; Z86.711 Personal history of pulmonary embolism; Z87.891 Personal history of nicotine dependence; Z91.041 Radiographic dye allergy status; Z91.040 Latex allergy status; Z79.899 Other long term (current) drug therapy
CPT/HCPCS: 70496; 80053; 81001; 81241; 84484; 85025; 85302; 85305; 85610; 85730; 93005; 93010; 93971; 96374; 96375; 99284-25; J1200; J1650; J2930; Q9967

== ENCOUNTER 2020-05-23 13:49 | Emergency (ER) | payer MEDICARE ==
[~2020-05-23] VITALS: Ht 170.2 cm; Wt 97.1 kg
[~2020-05-23 13:49] MED LIST changes: +COUMADIN5 MG PO; +GABAPENTIN300 MG PO; +OXYCODONE HCL5 MG PO; +TAMSULOSIN HCL0.4 MG PO
--- OUTSIDE RECORDS SUMMARY | 2020-05-23 13:54 | XMS ---
PreManage Notification: JOSE BERKOWITZ Security Roofing Subcontractor Events No recent Security Events currently on file CRITERIA MET - [facility] - 2 Visits in 30 Days [facility] PHONE: [phone] Chan has no Care Guidelines for this patient. ELindy VISIT COUNT (12 MO.) 1 [facility] Kline [address] [place] [address] TOTAL 3 NOTE: Visits indicate total known visits. ED/UCC VISIT TRACKING (12 MO.) 05/23/2020 13:51 [facility] TYPE: Emergency COMPLAINT: - LOWER BACK PAIN 04/25/2020 11:40 [facility] TYPE: Emergency COMPLAINT: - POSSIBLE BLOOD CLOT DIAGNOSES: - Acute embolism and thrombosis of left femoral vein - Acute embolism and thrombosis of unspecified deep veins of le - Personal history of other venous thrombosis and embolism - Radiographic dye allergy status - Personal history of pulmonary embolism - Acute embolism and thrombosis of left peroneal vein - Personal history of nicotine dependence - Other fdc (current) drug therapy - Localized edema - Acute embolism and thrombosis of left tibial vein - Latex allergy status - Acute embolism and thrombosis of left popliteal vein 10/25/2019 11:35 [facility] [place] TYPE: Emergency COMPLAINT: - RIGHT HAND, RING FINGER TURNING BLUE DIAGNOSES: - Palmar fascial fibromatosis [Dupuytren] - 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
[2020-05-23] MEDS ORDERED: OXYCODONE HCL5 MG PO (17:44)
== END 2020-05-23 17:55 | disposition home or self-care (01) ==
LOC: ED 13:49
DX: M54.9 Dorsalgia, unspecified (principal); R10.9 Unspecified abdominal pain; Z87.891 Personal history of nicotine dependence; Z91.041 Radiographic dye allergy status; Z91.040 Latex allergy status; Z79.899 Other long term (current) drug therapy
CPT/HCPCS: 74176; 80053; 81001; 83690; 85025; 85610; 96374; 99284-25; J1885

== ENCOUNTER 2020-06-22 14:01 | Emergency (ER) | payer MEDICARE ==
[~2020-06-22] VITALS: Ht 170.2 cm; Wt 97.1 kg
--- OUTSIDE RECORDS SUMMARY | 2020-06-22 14:04 | XMS ---
PreManage Notification: JOSE BERKOWITZ Security Gantry Rigger Events No recent Security Events currently on file CRITERIA MET - [facility] - 2 Visits in 30 Days CARE PROVIDERS ABEL LARIOS [facility] 04/07/2018-Current PHONE: [phone] Chan has no Care Guidelines for this patient. E.Nathanael. VISIT COUNT (12 MO.) [facility] [address] [place] [address] TOTAL 4 NOTE: Visits indicate total known visits. ED/UCC VISIT TRACKING (12 MO.) 06/22/2020 14:03 [facility] [place] TYPE: Emergency COMPLAINT: - CHEST PAIN, HEART FLUTTERING 05/23/2020 13:51 [facility] [place] TYPE: Emergency COMPLAINT: - LOWER BACK PAIN/ NON INJ DIAGNOSES: - Radiographic dye allergy status - Dorsalgia, unspecified - Personal history of nicotine dependence - Other rat exterminator (current) drug therapy - Latex allergy status - Unspecified abdominal pain 04/25/2020 11:40 [facility] [place] TYPE: Emergency [...] Personal history of nicotine dependence - Other rat exterminator (current) drug therapy - Localized edema - Acute embolism and thrombosis of left tibial vein - Latex allergy status - Acute embolism and thrombosis of left popliteal vein 10/25/2019 11:35 [facility] [place] TYPE: Emergency COMPLAINT: - RIGHT HAND, RING FINGER TURNING BLUE DIAGNOSES: - Palmar fascial fibromatosis [Dupuytren] - 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
--- NOTE | 2020-06-23 13:59 | EKG ---
[facility] [address] [place], [place] [address] Signed Sinus bradycardia with sinus arrhythmia Left axis deviation Abnormal ECG When compared with ECG of 25-APR-2020 12:12, No significant change was found Confirmed by MARISELA PEREZ DO ([id number]) on 06/23/2020 1:59:01 PM Electronically Signed By: MARISELA PEREZ DO 06/23/20 1359 PATIENT NAME: WOOJOSE Electrocardiogram DATE OF : 48 PHYSICIAN: MARISELA PEREZ DO REPORT #: [id number] REPORT IS CONFIDENTIAL AND NOT TO BE RELEASED WITHOUT AUTHORIZATION
== END 2020-06-22 17:00 | disposition home or self-care (01) ==
LOC: ED 14:01
DX: R00.2 Palpitations (principal); Z87.891 Personal history of nicotine dependence; Z91.040 Latex allergy status; Z91.041 Radiographic dye allergy status; Z79.01 Long term (current) use of anticoagulants; Z79.899 Other long term (current) drug therapy
CPT/HCPCS: 71045; 80053; 83735; 84443; 84484; 85025; 85610; 93005; 93010; 99285-25

== ENCOUNTER 2020-07-30 14:23 | Emergency (ER) | payer MEDICARE ==
[~2020-07-30] VITALS: Ht 170.2 cm; Wt 101.8 kg
--- OUTSIDE RECORDS SUMMARY | 2020-07-30 14:26 | XMS ---
PreManage Notification: JOSE BERKOWITZ Security Robotics Mechanic Events No recent Security Events currently on file CRITERIA MET - [facility] CARE PROVIDERS ABEL LARIOS [facility] 04/07/2018-Current PHONE: [phone] HANNAH CORDOVA Counselor: Mental Health 06/26/2020-[facility] PHONE: [phone] Chan has no Care Guidelines for this patient. Teresa VISIT COUNT (12 MO.) [facility] TOTAL 5 NOTE: Visits indicate total known visits. ED/UCC VISIT TRACKING (12 MO.) 07/30/2020 14:[address] [facility] [place] TYPE: Emergency COMPLAINT: - PREVIOUS BLOOD CLOT AND AREA SWOLLEN, RED, HOT 06/22/2020 14:[address] [facility] [address] [facility] [place] TYPE: Emergency COMPLAINT: - CHEST PAIN, HEART FLUTTERING DIAGNOSES: - ad terminal makeup operator (current) use of anticoagulants - Other petroleum terminal plant operator (current) drug therapy - Personal history of nicotine dependence - Palpitations - Dizziness and giddiness - Radiographic dye allergy status - Latex allergy status 05/23/2020 13:51 [facility] [place] TYPE: Emergency COMPLAINT: - LOWER BACK PAIN/ NON INJ DIAGNOSES: - Radiographic dye allergy status - Dorsalgia, unspecified - Personal history of nicotine dependence - Other petroleum terminal plant operator (current) drug therapy - Latex allergy status - Unspecified abdominal pain 04/25/2020 11:40 [facility] TYPE: Emergency COMPLAINT: - POSSIBLE BLOOD CLOT DIAGNOSES: - Acute embolism and thrombosis of left femoral vein - Acute embolism and thrombosis of unspecified deep veins of left distal lower extremity - Personal history of other venous thrombosis and embolism - Radiographic dye allergy status - Personal history of pulmonary embolism - Acute embolism and thrombosis of left peroneal vein - Personal history of nicotine dependence - Other mcfp (current) drug therapy - Localized edema - Acute embolism and thrombosis of left tibial vein - Latex allergy status - Acute embolism and thrombosis of left popliteal vein 10/25/2019 11:35 [facility] [place] TYPE: Emergency COMPLAINT: - RIGHT HAND, RING FINGER TURNING BLUE DIAGNOSES: - Palmar fascial fibromatosis [Dupuytren] - Unilateral primary osteoarthritis of first carpometacarpal joint, right hand - Contusion of right middle finger without damage to nail, initial encounter INPATIENT VISIT TRACKING (12 MO.) No inpatient visits to display in this time frame [email or web address]
[2020-07-30] MEDS ORDERED: GABAPENTIN300 MG PO (14:50)
[2020-07-30] MEDS ORDERED: KEFLEX500 MG PO (17:38)
== END 2020-07-30 17:50 | disposition home or self-care (01) ==
LOC: ED 14:23
DX: L03.116 Cellulitis of left lower limb (principal); Z91.040 Latex allergy status; Z91.041 Radiographic dye allergy status; Z79.01 Long term (current) use of anticoagulants; Z79.899 Other long term (current) drug therapy
CPT/HCPCS: 80053; 83605; 85025; 85610; 96374; 99283-25; J0690

== ENCOUNTER 2020-08-04 12:31 | Emergency (ER) | payer MEDICARE ==
[~2020-08-04] VITALS: Ht 170.2 cm; Wt 101.6 kg
[~2020-08-04 12:31] MED LIST changes: +KEFLEX500 MG PO
--- OUTSIDE RECORDS SUMMARY | 2020-08-04 12:34 | XMS ---
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 ELindy VISIT COUNT (12 MO.) 1 [facility] [place] TOTAL 6 NOTE: Visits indicate total known visits. ED/UCC VISIT TRACKING (12 MO.) 08/04/2020 12:[address] [facility] [place] TYPE: Emergency COMPLAINT: - L LEG SWOLLEN 07/30/2020 14:24 [facility] [place] TYPE: Emergency COMPLAINT: - EXTREMITY PAIN DIAGNOSES: - Radiographic dye allergy status - Latex allergy status - Other termite inspector (current) drug therapy - rodent exterminator (current) use of anticoagulants - Cellulitis of left lower limb 06/22/2020 14:03 [facility] [place] TYPE: Emergency COMPLAINT: - CHEST PAIN, HEART FLUTTERING DIAGNOSES: - care home (current) use of anticoagulants - Other termite inspector (current) drug therapy - Personal history of nicotine dependence - Palpitations - Dizziness and giddiness - Radiographic dye allergy status - Latex allergy status 05/23/2020 13:51 [facility] [place] TYPE: Emergency COMPLAINT: - LOWER BACK PAIN/ NON INJ DIAGNOSES: - Radiographic dye allergy status - Dorsalgia, unspecified - Personal history of nicotine dependence - Other termite inspector (current) drug therapy - Latex allergy status [...] Personal history of nicotine dependence - Other termite inspector (current) drug therapy - Localized edema - Acute embolism and thrombosis of left tibial vein - Latex allergy status - Acute embolism and thrombosis of left popliteal vein [facility] [place] [facility]: [facility] COMPLAINT: - RIGHT HAND, RING FINGER TURNING BLUE DIAGNOSES: - Palmar fascial fibromatosis [Dupuytren] - Unilateral primary osteoarthritis of first carpometacarpal joint, right hand - Contusion of right middle finger without damage to nail, initial encounter INPATIENT VISIT TRACKING (12 MO.) No inpatient visits to display in this time frame [email or web address]
[2020-08-04] MEDS ORDERED: NEURONTIN300 MG PO (14:56)
== END 2020-08-04 15:09 | disposition home or self-care (01) ==
LOC: ED 12:31
DX: G62.9 Polyneuropathy, unspecified (principal); Z91.040 Latex allergy status; Z91.041 Radiographic dye allergy status; Z79.01 Long term (current) use of anticoagulants; Z79.899 Other long term (current) drug therapy
CPT/HCPCS: 71045; 80053; 83605; 83880; 85025; 85610; 93970; 99284-25

== ENCOUNTER 2020-12-16 14:07 | Emergency (ER) | payer MEDICARE ==
[~2020-12-16] VITALS: Ht 172.7 cm; Wt 108.4 kg
[~2020-12-16 14:07] MED LIST changes: +NEURONTIN300 MG PO
--- OUTSIDE RECORDS SUMMARY | 2020-12-16 14:10 | XMS ---
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 Teresa VISIT COUNT (12 MO.) [facility] TOTAL 7 NOTE: Visits indicate total known visits. ED/UCC VISIT TRACKING (12 MO.) 12/16/2020 14:08 [facility] [place] TYPE: Emergency COMPLAINT: - RIGHT LEG PAIN/SWELLING NON INJ 10/14/2020 10:45 [facility] [place] TYPE: Emergency COMPLAINT: - UTI sx DIAGNOSES: - alf (current) use of anticoagulants - Peripheral vascular disease, unspecified - Acute embolism and thrombosis of unspecified deep veins of unspecified lower extremity - Retention of urine, unspecified - Fatty (change of) liver, not elsewhere classified 08/04/2020 12:32 [facility] [place] TYPE: Emergency COMPLAINT: - L LEG SWOLLEN DIAGNOSES: - Latex allergy status - Other half-way (current) drug therapy - Polyneuropathy, unspecified - intermodal dispatcher (current) use of anticoagulants - Localized edema - Radiographic dye allergy status 07/30/2020 14:24 [facility] [place] TYPE: Emergency COMPLAINT: - EXTREMITY PAIN DIAGNOSES: - Radiographic dye allergy status - Latex allergy status - Other half-way (current) drug therapy - intermodal dispatcher (current) use of anticoagulants - Cellulitis of left lower limb 06/22/2020 14:03 [facility] [place] TYPE: Emergency COMPLAINT: - CHEST PAIN, HEART FLUTTERING DIAGNOSES: - alf (current) use of anticoagulants - Other half-way (current) drug therapy - Personal history of nicotine dependence - Palpitations - Dizziness and giddiness - Radiographic dye allergy status - Latex allergy status 05/23/2020 13:51 [facility] [place] TYPE: Emergency COMPLAINT: - LOWER BACK PAIN/ NON INJ DIAGNOSES: - Radiographic dye allergy status - Dorsalgia, unspecified - Personal history of nicotine dependence - Other predatory animal exterminator (current) drug therapy - Latex allergy [...] Personal history of nicotine dependence - Other predatory animal exterminator (current) drug therapy - Localized edema - Acute embolism and thrombosis of left tibial vein - Latex allergy status - Acute embolism and thrombosis of left popliteal vein INPATIENT VISIT TRACKING (12 MO.) No inpatient visits to display in this time frame [email or web address]
[2020-12-16] MEDS ORDERED: HYDROCODON-ACE1 EA10 PO (14:59)
[2020-12-16] MEDS ORDERED: LOVENOX100 MG/1 M (15:00)
[2020-12-16] MEDS ORDERED: HYDROCODON-ACE1 EA11 PO (17:57)
== END 2020-12-16 18:15 | disposition home or self-care (01) ==
LOC: ED 14:07
DX: M25.561 Pain in right knee (principal); Z91.041 Radiographic dye allergy status; Z91.040 Latex allergy status; Z79.01 Long term (current) use of anticoagulants; Z79.899 Other long term (current) drug therapy; Z79.891 Long term (current) use of opiate analgesic
CPT/HCPCS: 20610; 73560; 80053; 85025; 93971; 99284-25; C9803; J1170; J3301; J7040; U0003

== ENCOUNTER 2021-05-14 14:18 | Emergency (ER) | payer MEDICARE ==
[~2021-05-14] VITALS: Ht 172.7 cm; Wt 108.4 kg
[~2021-05-14 14:18] MED LIST changes: +HYDROCODON-ACE1 EA10 PO; +HYDROCODON-ACE1 EA11 PO; +LOVENOX100 MG/1 M
[2021-05-14] MEDS ORDERED: PREDNISONE20 MG PO (16:31)
--- OUTSIDE RECORDS SUMMARY | 2021-05-14 16:42 | XMS ---
PreManage Notification: JOSE BERKOWITZ Security Asp Net Programmer Events No recent Security Events currently on file CRITERIA MET - [facility] CARE PROVIDERS ABEL LARIOS [facility] 04/07/2018-Current PHONE: [phone] HANNAH CRODOVA Counselor: Mental Health 06/26/2020-[facility] PHONE: [phone] Chan has no Care Guidelines for this patient. Teresa V[facility] (12 MO.) [facility] TOTAL 7 NOTE: Visits indicate total known visits. ED/UCC VISIT TRACKING (12 MO.) 05/14/2021 14:[address] [facility] [address] [place] TYPE: Emergency COMPLAINT: - R SIDE NERVE PAIN 12/16/2020 14:[address] [facility] [address] [place] TYPE: Emergency COMPLAINT: - RIGHT LEG PAIN/SWELLING NON INJ DIAGNOSES: - Latex allergy status - middle or intermediate school principal (current) use of anticoagulants - Pain in right lower leg - Other oil heaterman (current) drug therapy - Pain in right knee - Radiographic dye allergy status - half-way (current) use of opiate analgesic 10/14/2020 10:45 [facility] [place] TYPE: Emergency COMPLAINT: - UTI sx DIAGNOSES: - middle or intermediate school principal (current) use of anticoagulants - Peripheral vascular disease, unspecified - Acute embolism and thrombosis of unspecified deep veins of unspecified lower extremity - Retention of urine, unspecified - Fatty (change of) liver, not elsewhere classified 08/04/2020 12:32 [facility] [place] TYPE: Emergency COMPLAINT: - L LEG SWOLLEN DIAGNOSES: - Latex allergy status - Other oil heaterman (current) drug therapy - Polyneuropathy, unspecified - middle or intermediate school principal (current) use of anticoagulants - Localized edema - Radiographic dye allergy status 07/30/2020 14:24 [facility] [place] TYPE: Emergency COMPLAINT: - EXTREMITY PAIN DIAGNOSES: - Radiographic dye allergy status - Latex allergy status - Other residential (current) drug therapy - half-way (current) use of anticoagulants - Cellulitis of left lower limb 06/22/2020 14:03 [facility] [place] TYPE: Emergency COMPLAINT: - CHEST PAIN, HEART FLUTTERING DIAGNOSES: - half-way (current) use of anticoagulants - Other oil heaterman (current) drug therapy - Personal history of nicotine dependence - Palpitations - Dizziness and giddiness - Radiographic dye allergy status - Latex allergy status 05/23/2020 13:51 [facility] [place] TYPE: Emergency COMPLAINT: - LOWER BACK PAIN/ NON INJ DIAGNOSES: - Radiographic dye allergy status - Dorsalgia, unspecified - Personal history of nicotine dependence - Other oil heaterman (current) drug therapy - Latex allergy status - Unspecified abdominal pain INPATIENT VISIT TRACKING (12 MO.) 12/19/2020 09:27 [facility] [place] TYPE: [place] DIAGNOSES: - Benign prostatic hyperplasia with lower urinary tract symptoms - Other obstructive and reflux uropathy [id number]
== END 2021-05-14 16:55 | disposition home or self-care (01) ==
LOC: ED 14:18
DX: M54.41 Lumbago with sciatica, right side (principal); Z87.891 Personal history of nicotine dependence; Z91.040 Latex allergy status; Z91.041 Radiographic dye allergy status; Z79.01 Long term (current) use of anticoagulants
CPT/HCPCS: 99283; J7512

== ENCOUNTER 2021-05-24 10:19 | Emergency (ER) | payer MEDICARE ==
[~2021-05-24] VITALS: Ht 172.7 cm; Wt 108.4 kg
[~2021-05-24 10:19] MED LIST changes: +PREDNISONE20 MG PO
--- OUTSIDE RECORDS SUMMARY | 2021-05-24 10:26 | XMS ---
PreManage Notification: JOSE BERKOWITZ Security Airplane Pilot Chief Events No recent Security Events currently on file CRITERIA MET - [facility] [place] - 2 Visits in 30 Days CARE PROVIDERS ABEL LARIOS [facility] 04/07/2018-Current PHONE: [phone] HANNAH CORDOVA Counselor: Mental Health 06/26/2020-[facility] PHONE: [phone] LIVIA OROURKE [facility] 05/15/2021-Current PHONE: [phone] Chan has no Care Guidelines for this patient. E.D. VISIT COUNT (12 MO.) 1 [facility] 6 [facility] TOTAL 7 NOTE: Visits indicate total known visits. ED/UCC VISIT TRACKING (12 MO.) 05/24/2021 10:19 [facility] [place] TYPE: Emergency COMPLAINT: - PRESCRIPTION REFILL 05/14/2021 14:19 [facility] [place] TYPE: Emergency COMPLAINT: - R SIDE NERVE PAIN DIAGNOSES: - Latex allergy status - Personal history of nicotine dependence - prison (current) use of anticoagulants - Lumbago with sciatica, right side - Low back pain - Radiographic dye allergy status 12/16/2020 14:08 [facility] [place] TYPE: Emergency COMPLAINT: - RIGHT LEG PAIN/SWELLING NON INJ DIAGNOSES: - Latex allergy status - prison (current) use of anticoagulants - Pain in right lower leg - Other staff training and development manager (current) drug therapy - Pain in right knee - Radiographic dye allergy status - wash helper (current) use of opiate analgesic 10/14/2020 10:45 [facility] [place] TYPE: Emergency COMPLAINT: - UTI sx DIAGNOSES: - wash helper (current) use of anticoagulants - Peripheral vascular disease, unspecified - Acute embolism and thrombosis of unspecified deep veins of unspecified lower extremity - Retention of urine, unspecified - Fatty (change of) liver, not elsewhere classified 08/04/2020 12:32 [facility] [place] TYPE: Emergency COMPLAINT: - L LEG SWOLLEN DIAGNOSES: - Latex allergy status - Other snf (current) drug therapy - Polyneuropathy, unspecified - prison (current) use of anticoagulants - Localized edema - Radiographic dye allergy status 07/30/2020 14:24 [facility] [place] TYPE: Emergency COMPLAINT: - EXTREMITY PAIN DIAGNOSES: - Radiographic dye allergy status - Latex allergy status - Other staff training and development manager (current) drug therapy - prison (current) use of anticoagulants - Cellulitis of left lower limb 06/22/2020 14:03 [facility] [place] TYPE: Emergency COMPLAINT: - CHEST PAIN, HEART FLUTTERING DIAGNOSES: - prison (current) use of anticoagulants - Other staff training and development manager (current) drug therapy - Personal history of nicotine dependence - Palpitations - Dizziness and giddiness - Radiographic dye allergy status - Latex allergy status INPATIENT VISIT TRACKING (12 MO.) 12/19/2020 09:27 [facility] [place] TYPE: [facility] DIAGNOSES: - Benign prostatic hyperplasia with lower urinary tract symptoms - Other obstructive and reflux uropathy [email or web address]
[2021-05-24] MEDS ORDERED: OXYCODONE HCL5 MG PO (16:50)
[2021-05-24] MEDS ORDERED: PREDNISONE20 MG PO (16:50)
== END 2021-05-24 17:10 | disposition home or self-care (01) ==
LOC: ED 10:19
DX: M48.061 Spinal stenosis, lumbar region without neurogenic claudication (principal); G54.8 Other nerve root and plexus disorders; Z20.822 Contact with and (suspected) exposure to COVID-19; Z87.891 Personal history of nicotine dependence; Z91.040 Latex allergy status; Z91.041 Radiographic dye allergy status; Z79.899 Other long term (current) drug therapy; Z79.01 Long term (current) use of anticoagulants; Z79.52 Long term (current) use of systemic steroids
CPT/HCPCS: 72148; 85610; 93971; 99284-25; C9803; J1100; U0003

== ENCOUNTER 2022-08-01 12:52 | Emergency (ER) | payer MEDICARE ==
[~2022-08-01] VITALS: Ht 172.7 cm; Wt 104.1 kg
--- OUTSIDE RECORDS SUMMARY | 2022-08-01 12:56 | XMS ---
PreManage Notification: JOSE BERKOWITZ Security Oncology Radiation Physician Events No recent Security Events currently on file CRITERIA MET - 6 ED Visits in 6 Months - PDMP CARE PROVIDERS ABEL LARIOS [facility] 04/07/2018-Current PHONE: Unknown HANNAH CORDOVA Counselor: Mental Health 06/26/2020-Current [facility] PHONE: [phone] Yolnada Ann Community Health Worker 03/06/2022-Current PHONE: [phone] EDEN MEYER [facility] 05/25/2021-Current PHONE: Unknown LIVIA OROURKE Internal Medicine 05/15/2021-Current PHONE: [phone] Chan has no Care Guidelines for this patient. Care History Medical/Surgical 05/25/2021 [facility] - Patient is currently established with [facility]. If patient is seen in the ED during business hours. Please contact CHWs at [facility]. Care Recommendation: If this patient has had 5 or more Emergency Department visits in the last 12 months.\T\nbsp; Patient will require education on the scope and purpose of the ED as an acute care provider not a Primary Care Provider and should not be utilized for chronic conditions.\T\nbsp; These are guidelines and the provider should exercise clinical judgment when providing care. E.D. VISIT COUNT (12 MO.) 5 [facility] 1 [facility] 1 [facility] TOTAL 7 NOTE: Visits indicate total known visits. ED/UCC VISIT TRACKING (12 MO.) 08/01/2022 12:53 [facility] [place] TYPE: Emergency COMPLAINT: - FELL, R ARM PAIN 04/10/2022 13:48 [facility] [place] TYPE: Emergency DIAGNOSES: - Cellulitis of right lower limb - R LEG SWOLLEN - Other specified soft tissue disorders 03/16/2022 17:46 [facility] [place] TYPE: Emergency DIAGNOSES: - Other specified soft tissue disorders - general 03/04/2022 10:36 [facility] [place] TYPE: Emergency DIAGNOSES: - CHILLS - Cellulitis of right lower limb 02/24/2022 11:37 [facility] [place] TYPE: Emergency DIAGNOSES: - Cellulitis of right lower limb - RIGHT LEG INFECTION 02/05/2022 16:59 [facility] [place] TYPE: Emergency DIAGNOSES: - Contusion of right lower leg, initial encounter - LEG INJURY 02/05/2022 14:05 [facility] [place] TYPE: Emergency DIAGNOSES: - Contusion of right lower leg, initial encounter - Fall on same level from slipping, tripping and stumbling without subsequent striking against object, initial encounter - Primary generalized (osteo)arthritis - Personal history of other venous thrombosis and embolism - assisted (current) use of anticoagulants - Other [facility] as the place of occurrence of the external cause INPATIENT VISIT TRACKING (12 MO.) No inpatient visits to display in this time frame [email or web address]
[2022-08-01] MEDS ORDERED: OMEPRAZOLE20 MG PO (13:04)
[2022-08-01] MEDS ORDERED: ALLOPURINOL300 MG PO (13:04)
== END 2022-08-01 15:27 | disposition home or self-care (01) ==
LOC: ED 12:52
DX: S50.01XA Contusion of right elbow, initial encounter (principal); M70.21 Olecranon bursitis, right elbow; Z86.711 Personal history of pulmonary embolism; Z86.718 Personal history of other venous thrombosis and embolism; Z87.891 Personal history of nicotine dependence; Z91.040 Latex allergy status; Z91.048 Other nonmedicinal substance allergy status; Z79.01 Long term (current) use of anticoagulants; Z79.899 Other long term (current) drug therapy; W19.XXXA Unspecified fall, initial encounter
CPT/HCPCS: 73080; 99283-25

== ENCOUNTER 2023-02-03 05:50 | Day surgery (SDC) | payer MEDICARE ==
[2023-01-28 11:33] VITALS: BP 156/85
[~2023-02-03] VITALS: Ht 170.2 cm; Wt 109.1 kg
[~2023-02-03 05:50] MED LIST changes: +ALLOPURINOL300 MG PO; +HYDROCODON-ACE1 EAC1 PO; +OMEPRAZOLE20 MG PO
[2023-02-03 06:11] VITALS: BP 124/73
[2023-02-03] MEDS ORDERED: XARELTO10 MG PO (10:43)
[2023-02-03] MEDS ORDERED: CELECOXIB200 MG PO (10:43)
[2023-02-03] MEDS ORDERED: OXYCODONE HCL5 MG PO (10:43)
[2023-02-03] MEDS ORDERED: CEFPROZIL500 MG PO (10:44)
[2023-02-03] MEDS ORDERED: GABAPENTIN300 MG PO (10:44)
--- NOTE | 2023-02-03 11:07 | NUR ---
02/03/23 1107 Nereyda Herrmann SN 1050 PATIENT ARRIVES TO PACU RESTING WITH EYES CLOSED. RESPONSIVE TO VERBAL STIMULI. ROOM AIR SAT 88% NC W/CO2 MONITOR ON AT 3 LITERS. NEEDS REMINDER TO TAKE DEEP BREATH. BACK TO SLEEP WHEN NOT STIMULATED. 1057 PATIENT SITTING UP AND TALKING APPROPRIATLEY TO STAFF. RESP EVEN AND UNLABORED. NC W/CO2 MONITOR CONTINUES AT 3 LITERS.
--- NOTE | 2023-02-03 12:30 | NUR ---
PT TO FLOOR VIA STRETCHER FROM PACU. REPORT RECIEVED FROM YASMINE RNS. PT REPORTS PAIN 3 OR 4/10 AT THIS TIME AND STATES HE "THINKS" THIS IS TOLERABLE. DRESSING IS C/D/I, NO SIGNS OF BLEEDING AT THIS TIME. ON-Q PUMP IN PLACE AT 4, HEEL PROTECTORS, THIGH HIGH IZZY HOSE, AND FOOT PUMPS IN PLACE. PT REPORTS NO NAUSEA BUT SLIGHT DIZZINESS AT THIS TIME. PT IS ABLE TO WIGGLE TOES AT THE TIME, PEDAL PULSE PRESENT, SKIN PINK/WARM/DRY. PT IS TOLERATING JELLO AND ICE WATER WITHOUT DIFFICULTY SWALLOWING. SPINAL IS AT KNEE LEVEL AT THIS TIME. CHRIS IN ROOM DISCUSSING NEW KNEE BLOCK EFFICACY WITH PT AT THIS TIME. IV SITE WNL. CALL LIGHT WITHIN REACH, PLACING LUNCH ORDER FOR PT, NO FURTHER NEEDS AT THIS TIME.
[2023-02-03 12:36] VITALS: BP 123/74
--- NOTE | 2023-02-03 13:20 | NUR ---
PT PROVIDED A TURKEY SANDWICH. PT REPORTS WHEN HE CLOSES HIS EYES HE FEELS LIKE HE IS "UNSTEADY", STATES, "I FEEL LIKE I AM STILL MOVING". PT DENIES ANY DIZZINESS OR NAUSEA. PT'S NURSE NOTIFIED.
--- NOTE | 2023-02-03 13:30 | NUR ---
IN PT ROOM FOR ASSESSMENT AND VS. VSS. PT REPORTS PAIN 4/10 WHICH IS TOLERABLE LEVEL. PT REPORTS NO NAUSEA, DIZZINESS, TINGLING AT THIS TIME. PT REPORTS NUMBNESS FROM BALL OF FOOT TO TOES. SPINAL HAS RESOLVED AND PT CAN WIGGLE TOES. CRYO CUFF, IZZY HOSE, HEEL PROTECTORS, AND FOOT PUMPS IN PLACE. PT REPORTS OCCASIONAL FEELING OF URINE "SQUIRT", URINAL IN PLACE. PULSE PRESENT ON RT EXTREMITY, SKIN IS PINK/WARM/DRY, CAP REFILL <3 SEC. DRESSING REMAINS C/D/I, NO SIGNS OF BLEEDING. PT IS A&O X4 WITH PARTNER AT BEDSIDE. PT CONSUMED 100% OF LUNCH WITHOUT DIFFICULTY. IV SITE WNL. FRESH ICE WATER AND WARM BLANKET PROVIDED. CALL LIGHT WITHIN REACH, NO FURTHER NEEDS AT THIS TIME.
[2023-02-03 13:37] VITALS: BP 133/73
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
[2023-02-03 14:43] VITALS: BP 113/72
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
--- NOTE | 2023-02-03 15:08 | NUR ---
JOHNNIE ERNST CALLED REGARDING PT STAYING AT [facility]. 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 PT VERBALIZED UNDERSTANDING.
--- NOTE | 2023-02-03 15:30 | NUR ---
PT BACK FROM PHYSICAL THERAPY WHICH HE PASSED AND DID WELL WITH FWW, REQUIRING MINIMAL ASSISTANCE. PT STATES PAIN HAS NOT INCREASED WITH AMBULATION AND STATES DID NOT HAVE INCREASED DIZZINESS EITHER. PAIN REMAINS AT 3/10 AT THIS TIME WHICH IS TOLERABLE, SCHEDULED GABAPENTIN GIVEN (SEE EMAR). PT IN ROOM DRINKING WATER FOR URINE VOID, NECESSARY FOR DISCHARGE. CALL LIGHT WITHIN REACH, NO FURTHER NEEDS AT THIS TIME.
[2023-02-03 16:00] VITALS: BP 122/71
--- NOTE | 2023-02-03 16:00 | NUR ---
IN PT ROOM FOR VS AND ASSESSMENT. PT HAS SMALL AMOUNT OF SS DRAINAGE POST AMBULATION. PT REPORTS PAIN IS 3/10 IN RT KNEE AND THIS IS A TOLERABLE LEVEL. PT REPORTS NO NAUSEA. NUBMNESS IS REPORTED IN BIG RT TOE WHICH PT STATES IS FROM HOSPITAL SOCK, REMOVED AT THIS TIME. PT REPORTS MINIMAL DIZZINESS (BASELINE- SEE LAST NOTE). NO ACUTE CHANGES FROM PREVIOUS ASSESSMENT. VS. UPDATED JOHNNIE ERNST ON PT, VERBALIZES ORDER FOR PT DISCHARGE AT THIS TIME. PT NOW GETTING DRESSED WITH PARTNER ASSISTANCE, CALL LIGHT WITHIN REACH.
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
--- NOTE | 2023-02-05 09:46 | OR ---
[facility] [address] [place], [place] [address] Signed DATE OF OPERATION: 02/03/2023 SURGEON: Kyle Lopez MD PREOPERATIVE DIAGNOSIS: Severe DJD, right knee. POSTOPERATIVE DIAGNOSIS: Severe DJD, right knee. PROCEDURE PERFORMED: Right total knee arthroplasty with Yared. BOAT CANVAS MAKER AND INSTALLER: Kristi Flores PA-C. Kristi was present and critical for all portions of the procedure. ANESTHESIA: Spinal. BLOOD LOSS: 165 mL. TOURNIQUET TIME: Zero. IMPLANTS: [employer] Triathlon size 6, 9 mm polyethylene and a 38 mm patella. BRIEF HISTORY: Kp is a 72-year-old with progressive worsening of osteoarthritis in his knee. He had failed nonoperative treatment. Initially when he presented for surgery on his knee, he had multiple areas of ulceration in the right lateral calf. We canceled the surgery and got these healed up. His calf showed minimal swelling and good skin. The patient and I both elected to proceed with surgery. Care was taken throughout the procedure with extra padding and extra consideration for the poor skin condition distally. The knee was prepped and draped in a standard sterile fashion after placing him on the operating room bed. The leg velez was again extra well-padded. The knee was approached through standard anterior midline incision, carried through the skin and subcutaneous tissue. A midvastus arthrotomy was performed and the infrapatellar fat pad Electronically Signed By: KYLE LOPEZ MD 02/05/23 0946 PATIENT NAME: KP BERKOWITZ OPERATIVE REPORT DATE OF : 48 REPORT #: [id number] PHYSICIAN: KYLE LOPEZ MD PCP: EDEN MEYER MD REPORT IS CONFIDENTIAL AND NOT TO BE RELEASED WITHOUT AUTHORIZATION [facility] [address] [place], [place] [address] Signed was excised. The MCL was elevated with a sleeve around the posteromedial corner. The anterior horns of menisci were transected as was the ACL. The navigation guide was placed in the medial femoral condyle and proximal tibia. Leg was then registered with the computer followed by the fine anatomic points of the knee. The varus and valgus testing was undertaken showed a well-balanced knee with no significant changes made. The robot was brought in. Four straight cuts and two angled cuts were made with care taken to protect the MCL and patellar tendon. The bony remnants were removed as were any remaining osteophytes. The posterior osteophytes were removed off the femur. No posterior release performed. The trials were then positioned and the knee was taken through range of motion from 0 to 130 degrees of flexion with good stability throughout. The size 6 was appropriate. The patella was cut sized and drilled for a 38 mm patella. The distal femoral drill holes were finished and the keel punch and drill holes were made in the proximal tibia. The knee was irrigated with the Irrisept and the components were obtained. The tibia was impacted into position, followed by the polyethylene. It was well seated on the tibia with excellent bony stability. The femur was impacted. The knee was extended and nicely loaded. The patella was clamped into position. The clamp was removed. The knee was irrigated with bottle of Irrisept followed by normal saline. The periarticular soft tissues were injected with 100 mL of ropivacaine and Toradol mixture. The On-Q pain pump was percutaneously placed into the adductor canal from the suprapatellar pouch. The arthrotomy was then closed using a combination of #2 FiberWire and #2 Stratafix, subcutaneous tissue with 0 Stratafix and the skin with chris. The wound was dressed with an Aquacel dressing, ABDs, and Daryl wrap and he was placed in a long IZZY hose due to his chronic swelling. He was taken to the recovery room in satisfactory condition. All sponge, needle, and instrument counts were correct. Kyle Lopez MD BA/MODL /[id number] Copies: ~ Electronically Signed By: KYLE LOPEZ MD 02/05/23 0946 PATIENT NAME: KP BERKOWITZ OPERATIVE REPORT DATE OF : 48 REPORT #: [id number] PHYSICIAN: KYLE LOPEZ MD PCP: EDEN MEYER MD REPORT IS CONFIDENTIAL AND NOT TO BE RELEASED WITHOUT AUTHORIZATION
== END 2023-02-03 16:30 | disposition home or self-care (01) ==
LOC: DS 05:50
PROVIDERS: ATTEND Specialist
PROC: 0SRC0JZ Replacement of Right Knee Joint with Synthetic Substitute, Open Approach (ICD-10-PCS; principal; 2023-02-03 09:15)
DX: M17.11 Unilateral primary osteoarthritis, right knee (principal)
CPT/HCPCS: 01400; 64447; 64450; 76942; 97161; C1776; J1100; J1885; J2001; J2250; J2704; J2795; J3010; J3370; J7060; J7121

== ENCOUNTER 2023-02-07 20:23 | Emergency (ER) | payer MEDICARE ==
[~2023-02-07] VITALS: Ht 170.2 cm; Wt 109.1 kg
[~2023-02-07 20:23] MED LIST changes: +CEFPROZIL500 MG PO; +CELECOXIB200 MG PO; +XARELTO10 MG PO
--- OUTSIDE RECORDS SUMMARY | 2023-02-07 20:26 | XMS ---
PreManage Notification: JOSE BERKOWITZ Security Photo Editor Events No recent Security Events currently on file CRITERIA MET - [facility] [place] [facility] - 2 Visits in 30 Days CARE PROVIDERS ABEL LARIOS [facility] 04/07/2018-Current PHONE: Unknown HANNAH CORDOVA Counselor: Mental Health 06/26/2020-Current [facility] PHONE: [phone] Yolanda Ann Community Health Worker 03/06/2022-Current PHONE: [phone] EDEN MEYER [facility] 05/25/2021-Current PHONE: [phone] LIVIA OROURKE Internal Medicine 05/15/2021-Current PHONE: [phone] Chan has no Care Guidelines for this patient. Care History Medical/Surgical 05/25/2021 [facility] - Patient is currently established with [facility]. If patient is seen in the ED during business hours. Please contact CHWs at [facility]. Care Recommendation: If this patient has had [...] providing care. E.D. VISIT COUNT (12 MO.) 4 [facility] [place] 2 [facility] TOTAL 7 NOTE: Visits indicate total known visits. ED/UCC VISIT TRACKING (12 MO.) 02/07/2023 20:24 [facility] [place] TYPE: Emergency COMPLAINT: - POST SURGERY ISSUE 01/20/2023 16:51 [facility] [place] TYPE: Emergency DIAGNOSES: - Abrasion of right forearm, initial encounter - Abrasion of right hand, initial encounter - Pain in left knee - Unspecified fall, initial encounter - Unspecified place or not applicable 08/01/2022 12:53 [facility] [place] TYPE: Emergency COMPLAINT: - FELL, R ARM PAIN DIAGNOSES: - Contusion of right elbow, initial encounter - Latex allergy status - senior care (current) use of anticoagulants - Olecranon bursitis, right elbow - Other director long term care (current) drug therapy - Other nonmedicinal substance allergy status - Pain in right elbow - Personal history of nicotine dependence - Personal history of other venous thrombosis and embolism - Personal history of pulmonary embolism - Unspecified fall, initial encounter 04/10/2022 13:48 [facility] [place] [facility] Emergency DIAGNOSES: - Cellulitis of right lower limb - Other specified soft tissue disorders - R LEG SWOLLEN 03/16/2022 17:46 [facility] [place] TYPE: Emergency DIAGNOSES: - Other specified soft tissue disorders - general 03/04/2022 10:36 [facility] [place] TYPE: Emergency DIAGNOSES: - Cellulitis of right lower limb - CHILLS 02/24/2022 11:37 [facility] [place] TYPE: Emergency DIAGNOSES: - Cellulitis of right lower limb - RIGHT LEG INFECTION INPATIENT VISIT TRACKING (12 MO.) No inpatient visits to display in this time frame [email or web address]
[2023-02-07 23:04] VITALS: BP 133/81
== END 2023-02-07 23:05 | disposition home or self-care (01) ==
LOC: ED 20:23
DX: M96.89 Other intraoperative and postprocedural complications and disorders of the musculoskeletal system (principal); R60.0 Localized edema; Y83.8 Other surgical procedures as the cause of abnormal reaction of the patient, or of later complication, without mention of misadventure at the time of the procedure; Z86.718 Personal history of other venous thrombosis and embolism; Z87.891 Personal history of nicotine dependence; Z91.041 Radiographic dye allergy status; Z79.01 Long term (current) use of anticoagulants; Z79.899 Other long term (current) drug therapy
CPT/HCPCS: 36415; 76881; 80053; 85025; 93971; 96374; 99284-25; J2270

== ENCOUNTER 2023-10-31 16:17 | Emergency (ER) | payer MEDICARE ==
[~2023-10-31] VITALS: Ht 170.2 cm; Wt 107.3 kg
[~2023-10-31 16:17] MED LIST changes: +CEPHALEXIN500 M1 PO; +DOXYCYCLINE HY100 MG PO
[2023-10-31] MEDS ORDERED: LIDOCAINE HCL 4% 1 EACH PATCH TD ONE (18:30)
[2023-10-31] MEDS ORDERED: LIDOCAINE PATCH REMOVAL 1 EA TD SCH (21:00)
== END 2023-10-31 19:05 | disposition home or self-care (01) ==
LOC: ED 16:17
DX: G62.9 Polyneuropathy, unspecified (principal); G89.29 Other chronic pain; Z91.041 Radiographic dye allergy status; Z79.899 Other long term (current) drug therapy; Z87.891 Personal history of nicotine dependence; Z86.718 Personal history of other venous thrombosis and embolism; Z86.711 Personal history of pulmonary embolism
CPT/HCPCS: 99283; A9270

== ENCOUNTER 2024-10-09 13:50 | Emergency (ER) | payer MEDICARE ==
[~2024-10-09] VITALS: Ht 170.2 cm; Wt 107.0 kg
[~2024-10-09 13:50] MED LIST changes: +GABAPENTIN600 MG PO; +OXYCODONE-ACET1 EAC1 PO
[2024-10-09] MEDS ORDERED: CYCLOBENZAPRINE10 MG PO (15:40)
[2024-10-09 15:54] VITALS: BP 123/74
== END 2024-10-09 15:52 | disposition home or self-care (01) ==
LOC: ED 13:50
DX: M54.6 Pain in thoracic spine (principal); Z98.890 Other specified postprocedural states; Z86.718 Personal history of other venous thrombosis and embolism; Z86.711 Personal history of pulmonary embolism; Z87.891 Personal history of nicotine dependence; Z91.040 Latex allergy status; Z79.899 Other long term (current) drug therapy
CPT/HCPCS: 71046; 99283-25

== ENCOUNTER 2024-10-24 16:23 | Emergency (ER) | payer OTHER, MEDICARE ==
[~2024-10-24] VITALS: Ht 170.2 cm; Wt 111.1 kg
[~2024-10-24 16:23] MED LIST changes: +CYCLOBENZAPRINE10 MG PO
[2024-10-24 17:55] VITALS: BP 126/69
== END 2024-10-24 17:55 | disposition home or self-care (01) ==
LOC: ED 16:23
DX: S51.011A Laceration without foreign body of right elbow, initial encounter (principal); S80.01XA Contusion of right knee, initial encounter; S80.02XA Contusion of left knee, initial encounter; W10.9XXA Fall (on) (from) unspecified stairs and steps, initial encounter; Z87.891 Personal history of nicotine dependence
CPT/HCPCS: 73560; 99283

== ENCOUNTER 2025-07-13 15:27 | Emergency (ER) | payer MEDICARE ==
[~2025-07-13] VITALS: Ht 170.2 cm; Wt 111.1 kg
[2025-07-13 16:05] LABS: BASOPHILS 1.0 % (0.2-1.2); BLOOD/HGB, URINE NEGATIVE (Negative); EOSINOPHILS 2.9 % (0.8-7.0); KETONE, URINE NEGATIVE (Negative); LEUK ESTERASE, URINE NEGATIVE (negative); LYMPHOCYTES 37.1 % (21.8-53.1); MCH 32.3 PG (25.7-32.2); MCHC 34.0 g/dL (32.3-36.5); MCV 94.9 fL (79.0-92.2); MONOCYTES 10.2 % (5.3-12.2); NEUTROPHILS 48.4 % (34.0-67.9); NITRITE, URINE NEGATIVE (negative); RBC 4.34 M/uL (4.63-6.08)
[2025-07-13 16:14] LABS: ALT (SGPT) 22.0 U/L (14-59); AST (SGOT) 19.0 U/L (15-37); GLOMERULAR FILTRATION RATE,EST 83.0 mL/min (>60); PROTEIN, TOTAL 6.9 g/dL (6.4-8.2); UREA NITROGEN 22.0 mg/dL (7-18)
[2025-07-13 19:34] VITALS: BP 150/89
== END 2025-07-13 19:25 | disposition home or self-care (01) ==
LOC: ED 15:27
DX: K43.9 Ventral hernia without obstruction or gangrene (principal); Z87.891 Personal history of nicotine dependence
CPT/HCPCS: 36415; 74177; 80053; 81003; 83690; 85025; 99284-25; Q9967